=== PATIENT | female | born 1990 | race American Indian/Alaskan Native ===

== ENCOUNTER 2018-06-01 15:32 | Inpatient (IN) | payer MEDICAID ==
[2018-06-01] MEDS ORDERED: ASPIRIN PO ONE (15:38)
[2018-06-01] MEDS ORDERED: NORMODYNE IV ONE ×2 (15:45→21:30)
--- NOTE | 2018-06-01 16:09 | Emergency Department Report ---
HPI - General Chief Complaint: Chest Pain Time Seen by Provider: 06/01/18 15:53 - HPI HPI: 27 yo AA F presents to the ED with the complaint of a four day history of a productive cough, shortness of breath, chest tightness. The patient went to a urgent care and says that she was started on a albuterol inhaler without any relief. The patient had a stillbirth at 37 weeks that occurred on May 13, about 3 weeks ago. At that time the patient was displaying some elevated blood pressure and was placed on blood pressure medication but prior to that had no history of hypertension and no other past medical history. She denies any lower extremity swelling. No tobacco or illicit drug use or abuse. She does not have any local primary care physician as she just moved to the area. She denies any fever, abdominal pain, nausea, vomiting, back pain. It does hurt her in the chest when she breathes. ED Past Medical Hx - Past Medical History Hx Hypertension: Yes - Surgical History Past Surgical History?: No - Social History Smoking Status: Never Smoker Substance Use Type: None - Medications Home Medications: Home Medications Medication Instructions Recorded Confirmed Last Taken Type Docusate Sodium [Colace] 100 mg PO BID PRN 06/01/18 06/01/18 Unknown History Labetalol [Normodyne TAB] 100 mg PO Q8HR 06/01/18 06/01/18 Unknown History oxyCODONE /ACETAMINOPHEN [Percocet 1 tab PO Q4HR PRN 06/01/18 06/01/18 Unknown History 5/325 mg] ED Review of Systems ROS: Stated complaint: ARSLAN/POSS ASTHMA Other details as noted in HPI Comment: All other systems reviewed and negative Constitutional: denies: chills, fever Eyes: denies: eye pain, eye discharge, vision change ENT: denies: ear pain, throat pain Respiratory: cough, shortness of breath Cardiovascular: chest pain. denies: edema Gastrointestinal: denies: abdominal pain, nausea, diarrhea Genitourinary: denies: urgency, dysuria, discharge Musculoskeletal: denies: back pain, joint swelling, arthralgia Skin: denies: rash, lesions Neurological: denies: headache, weakness, paresthesias Physical Exam - Physical Exam Vital Signs: Vital Signs 06/01/18 06/01/18 15:36 16:05 Temperature 98.8 F Pulse Rate 116 H 87 Respiratory 24 18 Rate Blood Pressure 176/106 Blood Pressure 171/119 [Left] O2 Sat by Pulse 99 99 Oximetry Physical Exam: GENERAL: The patient is well-developed well-nourished. HENT: Normocephalic. Atraumatic. Patient has moist mucous membranes. EYES: Extraocular motions are intact. Pupils equal reactive to light bilaterally. NECK: Supple. Trachea is midline. CHEST/LUNGS: Clear to auscultation. Mild tachypnea. No accessory muscle use. There is no respiratory distress noted. HEART/CARDIOVASCULAR: Regular. There is mild tachycardia. There is no murmur. ABDOMEN: Abdomen is soft, nontender. Patient has normal bowel sounds. There is no abdominal distention. SKIN: Skin is warm and dry. No appreciable edema. NEURO: The patient is awake, alert, and oriented. The patient is cooperative. The patient has no focal neurologic deficits. The patient has normal speech. MUSCULOSKELETAL: There is no tenderness or deformity. There is no limitation range of motion. There is no evidence of acute injury. ED Course Vital Signs 06/01/18 06/01/18 15:36 16:05 Temperature 98.8 F Pulse Rate 116 H 87 Respiratory 24 18 Rate Blood Pressure 176/106 Blood Pressure 171/119 [Left] O2 Sat by Pulse 99 99 Oximetry ED Medical Decision Making - Lab Data Result diagrams: 06/01/18 15:51 06/01/18 15:51 - EKG Data -: EKG Interpreted by Me EKG shows normal: sinus rhythm, axis, intervals (prolonged QTC), QRS complexes, ST-T waves Rate: tachycardia (110 bpm) - EKG Data When compared to previous EKG there are: previous EKG unavailable Interpretation: other (sinus tachycardia, prolonged QTC) - Radiology Data Radiology results: report reviewed, image reviewed interpreted by me: Chest x-ray does not show any pneumothorax or focal consolidation but there is bilateral vascular congestion and concern for pulmonary edema. EXAM: CT ANGIO CHEST HISTORY: CP, SOB, elevated dimer TECHNIQUE: Following IV administration of 100 cc of Omnipaque 350 axial helical imaging was performed through the chest with maximum intensity projection images obtained and sagittal and coronal reformatted images obtained. Comparison: Chest x-ray also performed today FINDINGS: There are mostly symmetric and predominantly central bilateral areas of pulmonary consolidation. There are moderate-sized bilateral pleural fluid collections, right greater than left. There is no evidence of pneumothorax. The trachea and bronchi are patent. The heart is enlarged. The thoracic aorta is normal caliber. There is no evidence of intrathoracic adenopathy. No filling defects are demonstrated within the pulmonary arteries to suggest the presence of pulmonary artery emboli. The visualized portion the upper abdomen is unremarkable. The bony structures are unremarkable in appearance. IMPRESSION: 1. No evidence of pulmonary artery emboli. 2. Mostly symmetric in predominantly central bilateral areas of pulmonary consolidation with moderate size bilateral pleural fluid collections. Infectious and noninfectious etiologies, to include pulmonary edema, need to be considered. 3. Cardiomegaly. Transcribed By: ED Dictated By: BILLIE MORALES MD Electronically Authenticated By: BILLIE MORALES MD Signed Date/Time: 06/01/18 185 - Medical Decision Making This patient presents with a four-day history of shortness of breath and some chest tightness. She has coarse breath sounds on examination with some tachypnea but no accessory muscle use or respiratory distress. The patient has very elevated blood pressure and some mild tachycardia. EKG does not show any signs of ST elevation NH or dysrhythmia. Chest x-ray shows concern for perivascular congestion and some pulmonary edema. Patient's labs show a d- dimer of greater than 1808 BNP greater than 4000. CT angiography of the chest was done that did not show any pulmonary embolism or dissection but once again shows some pulmonary edema and/or effusions. The patient was given Lasix to begin diuresis. She was given multiple antihypertensive medications for her blood pressure. The patient appears to have some level of CHF and/or cardiomyopathy and will be admitted to the hospital for further evaluation and was accepted for admission by the hospitalist, Dr. White. - Differential Diagnosis CHF, cardiomyopathy, NH, asthma, PE Critical Care Time: No Critical care attestation.: If time is entered above; I have spent that time in minutes in the direct care of this critically ill patient, excluding procedure time. ED Disposition Clinical Impression: Hypertensive urgency CHF (congestive heart failure) Qualifiers: Heart failure type: unspecified Heart failure chronicity: acute Qualified Code( s): I50.9 - Heart failure, unspecified Disposition: OP ADMIT IP TO THIS HOSP Is pt being admited?: Yes Condition: Fair Referrals: PRIMARY CARE, [Primary Care Provider] - 3-5 Days Time of Disposition: 22:51
[2018-06-01 16:12] LABS: Basophils # (Auto) 0.1 K/mm3 (0.0-0.1); Eosinophils # (Auto) 0.4 K/mm3 (0.0-0.4); Eosinophils % (Auto) 3.5 % (0.0-4.3); Hemoglobin 10.5 gm/dl (10.1-14.3); Lymphocytes # (Auto) 1.4 K/mm3 (1.2-5.4); Lymphocytes % (Auto) 13.7 % (13.4-35.0); Mean Corpuscular HGB Conc 34 % (30-34); Mean Corpuscular Hemoglobin 28 pg (28-32); Mean Corpuscular Volume 84 fl (79-97); Monocytes # (Auto) 0.5 K/mm3 (0.0-0.8); Monocytes % (Auto) 4.4 % (0.0-7.3); Platelet Count 478 K/mm3 (140-440); Red Cell Distribution Width 16.3 % (13.2-15.2)
[2018-06-01 16:26] LABS: INR 1.12 (0.87-1.13)
[2018-06-01 16:27] LABS: Partial Thromboplastin Time 30.3 Sec. (24.2-36.6)
--- NOTE | 2018-06-01 16:34 | XRay Report ---
FINAL REPORT EXAM: XR CHEST 1V AP HISTORY: hypertension TECHNIQUE: Frontal portable view of the chest Comparison: None FINDINGS: There is bilateral pulmonary consolidation that is mostly symmetric and predominantly central. There is no evidence of pneumothorax or pleural fluid collection. The cardiac silhouette is enlarged. The thoracic aorta and bony structures are unremarkable. IMPRESSION: 1. Bilateral pulmonary consolidation in a pattern suggestive of pulmonary edema. In the proper clinical setting infection would also need to be considered. 2. Enlarged cardiac silhouette. If further imaging is required, CT chest may be helpful.
[2018-06-01 16:35] LABS: Albumin 3.2 g/dL (3.9-5); BUN/Creatinine Ratio 13; Blood Urea Nitrogen 8 mg/dL (7-17); Calcium 8.2 mg/dL (8.4-10.2); Hemolysis Index 0
[2018-06-01] MEDS ORDERED: K-DUR PO ONE (16:36)
[2018-06-01] MEDS ORDERED: LASIX IV ONE (16:37)
[2018-06-01 16:38] LABS: Alanine Aminotransferase < 5 units/L (7-56); Bilirubin,Direct < 0.2 mg/dL (0-0.2)
[2018-06-01] MEDS ORDERED: MAGNESIUM SULFATE 2GM/50ML 2 GM/50 ML BAG IV ONE (16:45)
[2018-06-01] MEDS ORDERED: APRESOLINE IV ONE ×2 (18:24→20:03)
--- NOTE | 2018-06-01 18:51 | Cat Scan Report ---
FINAL REPORT EXAM: CT ANGIO CHEST HISTORY: CP, SOB, elevated dimer TECHNIQUE: Following IV administration of 100 cc of Omnipaque 350 axial helical imaging was performed through the chest with maximum intensity projection images obtained and sagittal and coronal reformatted images obtained. Comparison: Chest x-ray also performed today FINDINGS: There are mostly symmetric and predominantly central bilateral areas of pulmonary consolidation. There are moderate-sized bilateral pleural fluid collections, right greater than left. There is no evidence of pneumothorax. The trachea and bronchi are patent. The heart is enlarged. The thoracic aorta is normal caliber. There is no evidence of intrathoracic adenopathy. No filling defects are demonstrated within the pulmonary arteries to suggest the presence of pulmonary artery emboli. The visualized portion the upper abdomen is unremarkable. The bony structures are unremarkable in appearance. IMPRESSION: 1. No evidence of pulmonary artery emboli. 2. Mostly symmetric in predominantly central bilateral areas of pulmonary consolidation with moderate size bilateral pleural fluid collections. Infectious and noninfectious etiologies, to include pulmonary edema, need to be considered. 3. Cardiomegaly.
[2018-06-01] MEDS ORDERED: MORPHINE IV ONE (20:22)
[2018-06-01] MEDS ORDERED: REGLAN IV ONE (21:30)
[2018-06-01] MEDS ORDERED: PHENERGAN PR ONE (21:38)
[2018-06-01] MEDS ORDERED: PHENERGAN PO ONE (21:44)
[2018-06-01] MEDS ORDERED: TYLENOL PO PRN (22:26)
[2018-06-01] MEDS ORDERED: PHENERGAN PR PRN (22:26)
[2018-06-01] MEDS ORDERED: MORPHINE IV PRN (22:26)
[2018-06-01] MEDS ORDERED: SODIUM CHLORIDE FLUSH SYRINGE 10 ML IV PRN (22:26)
--- NOTE | 2018-06-01 22:30 | History and Physical Report ---
History of Present Illness Date of examination: 06/01/18 History of present illness: 27-year-old woman status post delivery of stillbirth on May 13, developed hypertension after the test emergency room with complaints of shortness of breath, PND, orthopnea. Also complaining of cough productive of brown phlegm. Also has chest pain in the epigastric area that she describes as tightness, unable to say how long it lasts for, intensity 4/10, no radiation, she cannot identify exacerbating or relieving factors Review of systems Constitutional: no weight loss, chills, fever Ears, eyes, nose, mouth and throat: no nasal congestion, no nasal discharge, no sinus pressure, no vision change, no red eye. Neck: No neck pain or rigidity. Cardiovascular: no palpitations Respiratory:+ cough, shortness of breath Gastrointestinal: no abdominal pain hematochezia Genitourinary : no frequency , no hematuria Musculoskeletal: no joint swelling or muscle ache Integumentary: no rash, no pruritis Neurological: no parathesias, no numbness, no focal weakness Endocrine: no cold or heat intolerance, no polyuria or polydipsia Hematologic/Lymphatic: no easy bruising, no easy bleeding, no gland swelling Allergic/Immunologic: no urticaria, no angioedema. PAST MEDICAL HISTORY: Hypertension PAST SURGICAL HISTORY: SOCIAL HISTORY: No alcohol, no drugs, tobacco FAMILY HISTORY: Hypertension Medications and Allergies Allergies Allergy/AdvReac Type Severity Reaction Status Date / Time metoclopramide Allergy Unknown Verified 06/01/18 21:40 ondansetron [From Zofran] Allergy Unknown Verified 06/01/18 16:06 Home Medications Medication Instructions Recorded Confirmed Last Taken Type Docusate Sodium [Colace] 100 mg PO BID PRN 06/01/18 06/01/18 Unknown History Labetalol [Normodyne TAB] 100 mg PO Q8HR 06/01/18 06/01/18 Unknown History oxyCODONE /ACETAMINOPHEN [Percocet 1 tab PO Q4HR PRN 06/01/18 06/01/18 Unknown History 5/325 mg] Exam - Physical Exam Narrative exam: Gen. appearance: Patient lying in bed, no apparent distress HEENT: Normocephalic, atraumatic, pupils equally round and reactive to light, extraocular movement intact, and no sclericterus,. No JVD or thyromegaly or nodule,neck supple, no carotid bruit ,mucous membranes moist, no exudate or erythema Heart: S1, S2, regular rate and rhythm Lungs: Crackles bilaterally, breathing comfortable Abdomen: Positive bowel sounds, non-tender, nondistended, no organomegaly Extremity:no edema cyanosis, clubbing Skin: no rash, dry, warm Neuro: Oriented 3, cranial nerves II-12 intact, speech is fluent, motor and sensory intact - Constitutional Vitals: Temp Pulse Resp BP Pulse Ox 98.5 F 109 H 27 H 167/117 99 06/01/18 19:52 06/01/18 22:00 06/01/18 22:00 06/01/18 22:00 06/01/18 22:00 Results - Labs CBC & Chem 7: 06/02/18 05:18 06/02/18 05:18 Labs: Abnormal lab results 06/01/18 06/01/18 06/01/18 Range/Units 15:51 15:51 15:51 RDW 16.3 H (13.2-15.2) % Plt Count 478 H (140-440) K/mm3 Seg Neutrophils % 77.4 H (40.0-70.0) % Seg Neutrophils # 7.9 H (1.8-7.7) K/mm3 PT 15.0 H (12.2-14.9) Sec. D-Dimer 1813.35 H (0-234) ng/mlDDU Potassium 3.1 L (3.6-5.0) mmol/L Creatinine 0.6 L (0.7-1.2) mg/dL Calcium 8.2 L (8.4-10.2) mg/dL Magnesium (1.7-2.3) mg/dL ALT (7-56) units/L NT-Pro-B Natriuret Pep (0-450) pg/mL Albumin (3.9-5) g/dL 06/01/18 06/01/18 Range/Units 15:51 15:51 RDW (13.2-15.2) % Plt Count (140-440) K/mm3 Seg Neutrophils % (40.0-70.0) % Seg Neutrophils # (1.8-7.7) K/mm3 PT (12.2-14.9) Sec. D-Dimer (0-234) ng/mlDDU Potassium (3.6-5.0) mmol/L Creatinine (0.7-1.2) mg/dL Calcium (8.4-10.2) mg/dL Magnesium 1.50 L (1.7-2.3) mg/dL ALT < 5 L (7-56) units/L NT-Pro-B Natriuret Pep 4294 H (0-450) pg/mL Albumin 3.2 L (3.9-5) g/dL - Imaging and Cardiology EKG: image reviewed Chest x-ray: image reviewed CT scan - chest: report reviewed Assessment and Plan Assessment Community-acquired pneumonia CHF, new onset Chest pain probably related to pneumonia Plan Admit to medicine Start IV Zosyn, diurese IV Lasix Continue beta pedro, start YASMIN inhibitor, aspirin Check cardiac enzymes, echo, consult cardiology Monitor I's and O's, daily weights DVT prophylaxis
[2018-06-01] MEDS ORDERED: APRESOLINE IV PRN (22:33)
[2018-06-01] MEDS: ZOSYN/NS 4.5GM/100ML 4.5 GM/100 ML VIAL IV SCH (22:54)
[2018-06-02 00:52] LABS: Creatine Kinase MB 2.8 ng/mL (0.0-4.0)
[2018-06-02] MEDS: NORMODYNE PO SCH ×3 (00:59→16:26)
[2018-06-02] MEDS ORDERED: PHENERGAN PO PRN (04:00)
[2018-06-02] MEDS: LASIX IV SCH ×2 (06:15→17:54)
[2018-06-02] MEDS: ZOSYN/NS 4.5GM/100ML 4.5 GM/100 ML VIAL IV SCH ×2 (06:15→16:26)
[2018-06-02 06:41] LABS: Basophils # (Auto) 0.1 K/mm3 (0.0-0.1); Basophils % (Auto) 1.1 % (0.0-1.8); Eosinophils # (Auto) 0.4 K/mm3 (0.0-0.4); Eosinophils % (Auto) 3.6 % (0.0-4.3); Hematocrit 29.5 % (30.3-42.9); Hemoglobin 10.2 gm/dl (10.1-14.3); Lymphocytes # (Auto) 0.9 K/mm3 (1.2-5.4); Lymphocytes % (Auto) 8.8 % (13.4-35.0); Mean Corpuscular HGB Conc 35 % (30-34); Mean Corpuscular Hemoglobin 29 pg (28-32); Mean Corpuscular Volume 83 fl (79-97); Monocytes # (Auto) 0.4 K/mm3 (0.0-0.8); Monocytes % (Auto) 4.4 % (0.0-7.3); Platelet Count 472 K/mm3 (140-440); Red Blood Count 3.54 M/mm3 (3.65-5.03); Red Cell Distribution Width 16.3 % (13.2-15.2)
[2018-06-02 06:58] LABS: BUN/Creatinine Ratio 13; Blood Urea Nitrogen 8 mg/dL (7-17); Calcium 8.4 mg/dL (8.4-10.2); Hemolysis Index 15
[2018-06-02 06:59] LABS: Creatine Kinase MB 2.3 ng/mL (0.0-4.0)
--- NOTE | 2018-06-02 09:31 | Consultation ---
History of Present Illness Consult date: 06/02/18 History of present illness: Impression Acute Dyspnea/orthopnea post delivery now resolved HTN, history prior to (she has had two stillbirths), currently on anti -HTN meds CXR suggestive of b/l pleural effusion, s/p IV diuresis Plan Medical therapy for HTN urgency, now improved since presentation Check echo to evaluate for CMP post-. Past History Past Medical History: hypertension Medications and Allergies Allergies Allergy/AdvReac Type Severity Reaction Status Date / Time metoclopramide Allergy Unknown Verified 06/01/18 21:40 ondansetron [From Zofran] Allergy Unknown Verified 06/01/18 16:06 Home Medications Medication Instructions Recorded Confirmed Last Taken Type Docusate Sodium [Colace] 100 mg PO BID PRN 06/01/18 06/01/18 Unknown History Labetalol [Normodyne TAB] 100 mg PO Q8HR 06/01/18 06/01/18 Unknown History oxyCODONE /ACETAMINOPHEN [Percocet 1 tab PO Q4HR PRN 06/01/18 06/01/18 Unknown History 5/325 mg] Active Meds: Active Medications Acetaminophen (Tylenol) 650 mg PO Q4H PRN PRN Reason: Pain MILD(1-3)/Fever >100.5/HEATH Last Admin: 06/02/18 06:15 Dose: 650 mg Aspirin (Baby Aspirin) 81 mg PO QDAY MIKE Enoxaparin Sodium (Lovenox) 40 mg SUB-Q QDAY@1000 MIKE Furosemide (Lasix) 40 mg IV BID@0600,1800 MIKE Last Admin: 06/02/18 06:15 Dose: 40 mg Hydralazine HCl (Apresoline) 5 mg IV Q6HR PRN PRN Reason: Hypertension Last Admin: 06/02/18 00:07 Dose: 5 mg Piperacillin Sod/Tazobactam Sod (Zosyn/Ns 4.5gm/100ml) 4.5 gm in 100 mls @ 200 mls/hr IV Q8HR MIKE; Protocol Last Admin: 06/02/18 06:15 Dose: 200 mls/hr Labetalol HCl (Normodyne) 100 mg PO Q8HR MIKE Last Admin: 06/02/18 06:19 Dose: 100 mg Lisinopril (Zestril) 2.5 mg PO QDAY MIKE Morphine Sulfate (Morphine) 2 mg IV Q4H PRN PRN Reason: Pain, Moderate (4-6) Promethazine HCl (Phenergan) 25 mg MI Q6H PRN PRN Reason: N/V IF NPO AND NO IV ACCESS Promethazine HCl (Phenergan) 25 mg PO Q6H PRN PRN Reason: Nausea And Vomiting Last Admin: 06/02/18 04:32 Dose: 25 mg Sodium Chloride (Sodium Chloride Flush Syringe 10 Ml) 10 ml IV BID MIKE Sodium Chloride (Sodium Chloride Flush Syringe 10 Ml) 10 ml IV PRN PRN PRN Reason: LINE FLUSH Review of Systems All systems: negative (stated in HPI) Physical Examination Vital Signs Temp Pulse Resp BP Pulse Ox 98.8 F 116 H 24 176/106 99 06/01/18 15:36 06/01/18 15:36 06/01/18 15:36 06/01/18 15:36 06/01/18 15:36 General appearance: no acute distress HEENT: Positive: PERRL Neck: Positive: neck supple Cardiac: Positive: Reg Rate and Rhythm, S1/S2, S4 Lungs: Positive: Normal Exam Neuro: Positive: Grossly Intact Abdomen: Positive: Unremarkable Extremities: Present: normal. Absent: edema Results 06/02/18 05:18 06/02/18 05:18 Cardiac Enzymes 06/01/18 06/01/18 06/02/18 Range/Units 15:51 23:27 05:18 AST 11 (5-40) units/L CK-MB (CK-2) 2.8 2.3 (0.0-4.0) ng/mL Coagulation 06/01/18 Range/Units 15:51 PT 15.0 H (12.2-14.9) Sec. INR 1.12 (0.87-1.13) APTT 30.3 (24.2-36.6) Sec. CBC 06/01/18 06/02/18 Range/Units 15:51 05:18 WBC 10.2 10.0 (4.5-11.0) K/mm3 RBC 3.70 3.54 L (3.65-5.03) M/mm3 Hgb 10.5 10.2 (10.1-14.3) gm/dl Hct 31.0 29.5 L (30.3-42.9) % Plt Count 478 H 472 H (140-440) K/mm3 Lymph # 1.4 0.9 L (1.2-5.4) K/mm3 [place] # 0.5 0.4 (0.0-0.8) K/mm3 Eos # 0.4 0.4 (0.0-0.4) K/mm3 Baso # 0.1 0.1 (0.0-0.1) K/mm3 Comprehensive Metabolic Panel 06/01/18 06/01/18 06/02/18 Range/Units 15:51 15:51 05:18 Sodium 142 142 (137-145) mmol/L Potassium 3.1 L 3.1 L (3.6-5.0) mmol/L Chloride 101.6 101.4 (98-107) mmol/L Carbon Dioxide 25 27 (22-30) mmol/L BUN 8 8 (7-17) mg/dL Creatinine 0.6 L 0.6 L (0.7-1.2) mg/dL Glucose 86 108 H (65-100) mg/dL Calcium 8.2 L 8.4 (8.4-10.2) mg/dL Direct Bilirubin < 0.2 (0-0.2) mg/dL Indirect Bilirubin 0.4 mg/dL AST 11 (5-40) units/L ALT < 5 L (7-56) units/L Alkaline Phosphatase 74 (35-129) units/L Total Protein 6.7 (6.3-8.2) g/dL Albumin 3.2 L (3.9-5) g/dL
[2018-06-02] MEDS ORDERED: BABY ASPIRIN PO SCH (10:00)
[2018-06-02] MEDS ORDERED: LOVENOX SUB-Q SCH ×2 (10:00)
[2018-06-02] MEDS ORDERED: SODIUM CHLORIDE FLUSH SYRINGE 10 ML IV SCH (10:00)
[2018-06-02] MEDS ORDERED: ZESTRIL PO SCH (10:00)
[2018-06-02] MEDS ORDERED: KCL IV ONE (12:38)
[2018-06-02] MEDS ORDERED: NACL 0.9% IV ONE (12:38)
[2018-06-02] MEDS ORDERED: MAGNESIUM SULFATE 2GM/50ML 2 GM/50 ML BAG IV ONE (12:39)
[2018-06-02 16:29] VITALS: BP 146/98
--- NOTE | 2018-06-02 23:29 | Discharge Summary ---
Providers - Providers Date of Admission: 06/01/18 22:26 Attending physician: NATA RICH MD 06/02/18 00:40 Consult to Physician [CONS] Routine Comment: Consulting Provider: WILLARD BALLESTEROS Physician Instructions: Reason For Exam: chf Primary care physician: BUFFER NICKEL Hospitalization Condition: Fair Disposition: DC-07 LEFT AGAINST MED ADVICE Exam - Constitutional Vitals: Temp Pulse Resp BP Pulse Ox 98.0 F 103 H 18 146/98 99 06/02/18 16:28 06/02/18 16:28 06/02/18 16:28 06/02/18 16:28 06/02/18 16:28 Plan Follow up with: PRIMARY CAREMD [Primary Care Provider] - 3-5 Days Forms: AMA Form
== END 2018-06-02 18:32 | disposition left against medical advice (07) | DRG 776 ==
LOC: ED 15:32 → 4A 22:26
PROVIDERS: ADMIT Internal Medicine; ATTEND Internal Medicine
DX: O10.13 Pre-existing hypertensive heart disease complicating the puerperium (principal); O99.53 Diseases of the respiratory system complicating the puerperium; I50.9 Heart failure, unspecified; J18.9 Pneumonia, unspecified organism; I11.0 Hypertensive heart disease with heart failure; I16.0 Hypertensive urgency; Z88.8 Allergy status to other drugs, medicaments and biological substances
CPT/HCPCS: 36415; 71045; 71275; 80048; 80074; 82550; 82553; 83735; 83880; 84484; 85025; 85379; 85610; 85730; 93005; 93010; 93306; 96365; 96375; 99406; J0360; J1650; J1940; J2270; J2543; J2765; J3475; J3480; J7030; Q0169; Q9967

== ENCOUNTER 2018-06-08 01:39 | Emergency (ER) | payer MEDICAID ==
[2018-06-08] MEDS ORDERED: DUONEB *Not for PRN Use IH ONE ×2 (02:13→02:30)
== END 2018-06-08 03:20 | disposition left against medical advice (07) ==
LOC: ED 01:39
DX: R06.02 Shortness of breath (principal); Z53.21 Procedure and treatment not carried out due to patient leaving prior to being seen by health care provider
CPT/HCPCS: 93005; 93010; 94640